=== PATIENT | female | born 2000 ===

== ENCOUNTER 2022-11-29 13:15 | Outpatient (CLI) | payer BC ==
[2022-11-29 21:42] LABS: BACTERIAL VAGINOSIS DNA POSITIVE (NEGATIVE); CANDIDA GLABRATA DNA NEGATIVE (NEGATIVE); CANDIDA GROUP DNA POSITIVE (NEGATIVE); CANDIDA KRUSEI DNA NEGATIVE (NEGATIVE); TRICHOMONAS VAGINALIS DNA NEGATIVE (NEGATIVE)
[2022-11-29 23:06] LABS: CHLAMYDIA TRACHOMATIS DNA NEGATIVE (NEGATIVE); NEISSERIA GONORRHOEAE DNA NEGATIVE (NEGATIVE)
== END 2022-11-29 13:30 | disposition home or self-care (01) ==
LOC: LAB.N 13:15
PROVIDERS: ATTEND Registered Nurse
DX: R30.0 Dysuria (principal); N89.8 Other specified noninflammatory disorders of vagina
CPT/HCPCS: 81514; 87491; 87591; 87661